=== PATIENT | male | born 1955 | race Caucasian/White ===

== ENCOUNTER 2022-09-20 12:34 | Outpatient (CLI) | payer MEDICARE, SELFPAY ==
[2022-09-20 18:32] LABS: Hemoglobin 13.3 g/dL (14.0-18.0); Mean Corpuscular HGB Conc 31.7 g/dl (32-36); Mean Corpuscular Hemoglobin 27.5 pg (26-34); Mean Platelet Volume 11.7 fl (7.4-10.4); Platelet Count Result 277 k/mm3 (150-375); Red Blood Count 4.83 M/mm3 (4.6-6.20); Red Cell Distribution Width 14.9 % (11.5-14.5); White Blood Count 5.4 K/mm3 (4.5-10.0)
[2022-09-20 18:39] LABS: Alanine Aminotransferase 14 U/L (6-50); Albumin Level 4.4 g/dL (3.5-5.1); Alkaline Phosphatase 88 U/L (38-126); Anion Gap 9 mmol/L (8-16); Aspartate Amino Transferase 27 U/L (17-59); Bilirubin,Total 0.8 mg/dL (0.2-1.3); Blood Urea Nitrogen 18 mg/dL (9-20); Calcium 9.3 mg/dL (8.4-10.2); Carbon Dioxide 27 mmol/L (22-30); Chloride 103 mmol/L (98-107); Cholesterol 161 mg/dL (0-200); Estimated Glomerular Filt Rate > 60; Glucose 95 mg/dL (65-110); HDL Direct 27 mg/dL; Potassium 4.2 mmol/L (3.4-5.0); Sodium 139 mmol/L (137-145); Triglycerides 178 mg/dL (<150)
[2022-09-20 18:49] LABS: LDL Cholesterol Direct 99 mg/dL
== END 2022-09-20 12:35 | disposition home or self-care (01) ==
LOC: ANHGOSHLAB 12:37
PROVIDERS: PCP Family Medicine Adolescent Medicine; Visit Provider Family Medicine Adolescent Medicine
DX: R06.00 Dyspnea, unspecified (principal); R00.1 Bradycardia, unspecified; I10 Essential (primary) hypertension; I25.10 Atherosclerotic heart disease of native coronary artery without angina pectoris
CPT/HCPCS: 36415; 80053; 80061; 84443; 85027

== ENCOUNTER 2023-09-18 12:58 | Inpatient (IN) | payer MEDICARE, SELFPAY ==
[2023-09-18] VITALS (14 sets, daily range): BP systolic 109–132; BP diastolic 50–76; PULSE 93–103; RESP 12–23; TEMP 36.3–36.4; O2SAT 95–99; BMI 14.7
--- NOTE | ~2023-09-18 | CT_ITS ---
EXAMINATION: CT brain wo con DATE: 09/18/2023 14:39 INDICATION: Weakness. Cachexia. TECHNIQUE: Computed tomography (CT) of the head was performed without intravenous contrast. The mA wa s adjusted according to patient size. Iterative reconstruction technique was employed. The dose-lengt h product was 681.00 mGy-cm. COMPARISON: None FINDINGS: There is an old infarct in right caudate nucleus. There are scattered areas of low attenuat ion in the cerebral white matter. There is no intracranial hemorrhage, acute infarction, or abnormal intracranial mass lesion. The ventricles are normal in size. There is mild mucosal thickening in the paranasal sinuses. The orbits are normal. There is a trace left mastoid effusion. IMPRESSION: 1. 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 2. Extensive nonspecific cerebral white matter disease, which likely represents chronic small vessel ischemic disease. Reviewed, dictated and finalized at location A.
--- NOTE | ~2023-09-18 | CT_ITS ---
EXAMINATION: CT chest abdomen pelvis w con DATE: 09/18/2023 14:39 INDICATION: Cachexia. Failure to thrive. TECHNIQUE: Computed tomography (CT) of the chest, abdomen, and pelvis was performed with 100 mL Omnip aque 350 intravenous contrast. Automated exposure control and iterative reconstruction technique were employed. The dose-length product was 351.22 mGy-cm. COMPARISON: None FINDINGS: CHEST CT: There is moderate emphysema. There are small pleural effusions. There is mild atelectasis bilaterally with a dependent predominance. There is mediastinal and right supraclavicular lymphadenopathy. For xu daley, a right supraclavicular elliott mass measures 5.0 x 3.0 cm. Cardiomegaly is noted. There are co ronary artery calcifications. There are changes of coronary artery bypass grafting. No pericardial ef fusion. There is mild chronic anterior wedging of multiple thoracic vertebral bodies. There is sclero sis in T9 vertebral body that is indeterminate for metastatic disease. ABDOMEN/PELVIS CT: There are greater than 10 ring-enhancing masses in the liver measuring up to 16 mm. The spleen, gallb ladder, pancreas, adrenal glands, and left kidney are normal. There is moderate atrophy of right kidn ey. Stool distends the rectum. The appendix is not visualized. There are no pathologically enlarged l ymph nodes. There is no free intraperitoneal fluid. There is calcified atherosclerosis of the aorta a nd many of the other arteries. There is total occlusion of the bilateral superficial femoral arteries . There is severe stenosis of right renal artery. There is a total left hip arthroplasty. There is a burst fracture of L1 with 4/5 loss of height and retropulsion of bone 5 mm into central spinal canal. There is a chronic burst fracture of L3. IMPRESSION: 1. Liver masses and mediastinal and right supraclavicular lymphadenopathy, consistent with metastatic disease. Sclerosis in T9 that is indeterminate for metastatic disease. 2. Small pleural effusions. 3. Age-indeterminate L1 burst fracture suspicious for pathologic fracture. 4. Moderate emphysema. 5. Stool distends the rectum. 6. Arterial occlusive disease. Reviewed, dictated and finalized at location A. IMPRESSION: 1. Liver masses and mediastinal and right supraclavicular lymphadenopathy, cons istent with metastatic disease. Sclerosis in T9 that is indeterminate for metas tatic disease. 2. Small pleural effusions. 3. Age-indeterminate L1 burst fracture suspicious for pathologic fracture. 4. Moderate emphysema. 5. Stool distends the rectum. 6. Arterial occlusive disease.
--- NOTE | ~2023-09-18 | CT_ITS ---
EXAMINATION: CT cervical spine wo con DATE: 09/18/2023 14:39 INDICATION: Fall. Weakness. TECHNIQUE: Computed tomography (CT) of the cervical spine was performed without intravenous contrast. Automated exposure control and iterative reconstruction technique were employed. The dose-length pro duct was 184.29 mGy-cm. COMPARISON: None FINDINGS: There is 2 mm anterolisthesis of C3 and C4. There is 4 degrees levocurvature of cervical sp ine. Vertebral body heights are normal. There is mildly decreased disc height at C2-C3 and severely d ecreased disc height from C3-C4 through C7-T1. The following disc levels are specifically discussed: C2-C3: There is mild left uncovertebral joint osteoarthritis. There is severe right and moderate left facet joint osteoarthritis. There is mild left neural foraminal stenosis. There is no central canal stenosis. C3-C4: There is severe bilateral uncovertebral joint osteoarthritis. There is mild right and severe l eft facet joint osteoarthritis. There is mild right and moderate left neural foraminal stenosis. Ther e is mild central canal stenosis. C4-C5: There is severe right and mild left uncovertebral joint osteoarthritis. There is moderate righ t and severe left facet joint osteoarthritis. There is mild right neural foraminal stenosis. There is mild central canal stenosis. C5-C6: There is severe bilateral uncovertebral joint osteoarthritis. There is severe bilateral facet joint osteoarthritis. There is moderate bilateral neural foraminal stenosis. There is mild central ca nal stenosis. C6-C7: There is severe bilateral uncovertebral joint osteoarthritis. There is moderate bilateral face t joint osteoarthritis. There is moderate bilateral neural foraminal stenosis. There is mild central canal stenosis. C7-T1: There is severe bilateral uncovertebral joint osteoarthritis. There is moderate bilateral face t joint osteoarthritis. There is mild bilateral neural foraminal stenosis. There is mild central uriel l stenosis. IMPRESSION: 1. No fracture. 2. Severe cervical spondylosis. Reviewed, dictated and finalized at location A.
--- NOTE | ~2023-09-18 | XR_ITS ---
EXAMINATION: XR barium swallow modified DATE: 09/19/2023 13:48 INDICATION: Dysphagia. TECHNIQUE: The patient was given barium-containing material of multiple consistencies to swallow by t he speech pathologist while I performed fluoroscopy. Fluoroscopy exposure time was 3.3 minutes. The n umber of fluoroscopy images saved to the PACS was 1. Dose-area product was 2.03 Gy-cm^2. FINDINGS: There is delayed oral transit. There is reduced laryngeal elevation. There is laryngeal penetration w ith uncontrolled thin liquids via straw. IMPRESSION: 1. Laryngeal penetration with uncontrolled thin liquids via straw. 2. Please refer to the speech therapy report for recommendations. Reviewed, dictated and finalized at location A.
--- NOTE | ~2023-09-18 | US_ITS ---
EXAMINATION: US biopsy lymph node DATE: 09/19/2023 11:10 INDICATION: Right supraclavicular lymphadenopathy. TECHNIQUE: The procedure including the risks, benefits, and alternatives was discussed with the patie nt. Risks discussed included bleeding and infection. The patient understood the risks and agreed to p roceed. The skin overlying the right neck was prepped and draped in usual sterile fashion. Anestheti c was administered with 1% lidocaine subcutaneously. An 18 gauge core biopsy needle was then used to obtain 3 core biopsy specimens under continuous sonographic guidance. The entry site was cleaned and dressed. There were no immediate complications. FINDINGS: Ultrasound images demonstrate the needle in a 5.1 x 3.5 x 2.3 cm right supraclavicular lymp h node. IMPRESSION: 1. Ultrasound-guided core needle biopsy of right supraclavicular lymphadenopathy. Reviewed, dictated and finalized at location A. IMPRESSION: 1. Ultrasound-guided core needle biopsy of right supraclavicular lymphadenopath yHugo
--- NOTE | 2023-09-18 13:24 | ECG_ITS ---
[facility] [address] Test Date: 2023-09-18 Pat Name: Ivan Sharif Department: Room: Gender: M Pediatric Dermatologist: Tariq : 1955 Requested By: Hellen Nash Order Number: [id number] Ze MD: Merry Barrow M.D. Measurements Intervals [place] Rate: 101 P: -74 AL: 180 QRS: -61 QRSD: 162 T: 92 QT: 391 QTc: 509 Interpretive Statements ECTOPIC ATRIAL TACHYCARDIA WITH OCCASIONAL VENTRICULAR PREMATURE COMPLEXES POSSIBLE LEFT ATRIAL ENLARGEMENT [-0.1mV P WAVE IN V1/V2] MARKED LEFT AXIS DEVIATION [QRS AXIS < -30] LEFT BUNDLE BRANCH BLOCK [120+ ms QRS DURATION, 80+ ms Q/S IN V1/V2, 85+ ms R IN I/aVL/V5/V6] No previous ECG available for comparison Electronically Signed On 09-18-2023 13:52:04 CDT by Merry Barrow M.D.
--- NOTE | 2023-09-18 13:28 | ED.WEAKNESS ---
HPI - Weakness General Chief complaint: Weakness <Hellen Conde PA-C - Last Filed: 09/18/23 17:36> Stated complaint: FTT <Hellen Conde PA-C - Last Filed: 09/18/23 17:36> Time Seen by Provider: 09/18/23 13:05 <Hellen Conde PA-C - Last Filed: 09/18/23 17:36> History of Present Illness HPI Narrative: 68-year-old male with a history of MDD, emphysema, hypertension, CAD, s/p CABG Presents to the ED via EMS from home for generalized weakness and failure to thrive. Patient states he has been unable to get off of the floor for multiple days and prior to that was unable to get off of the couch for 3 weeks. he is covered in feces and urine upon arrival. States he has not been able to eat or drink anything for or multiple weeks and reports significant weight loss. Unable to quantify. Per chart review, he weighed 59 kg in September of 2022 and today weighs 46 kg. He Is reporting pain to his buttock. He denies cough or congestion, chest pain or shortness of breath, fever, abdominal pain, nausea vomiting, diarrhea , dysuria or hematuria. States he has not been taking any medications for a while. Patient also notes prior history of alcohol abuse. States he stop drinking 7 years ago. <Hellen Conde PA-C - Last Filed: 09/18/23 17:36> Related Data Home medications: Home Medications Medication Instructions Recorded Confirmed ascorbic acid (vitamin C) 500 mg 500 mg PO DAILY 09/18/23 09/18/23 tablet <Hellen Conde PA-C - Last Filed: 09/18/23 17:36> Allergies/Adverse reactions: Allergies Allergy/AdvReac Type Severity Reaction Status Date / Time No Known Allergies Allergy Verified 09/18/23 18:49 <SATHYA Jaime Last Filed: 09/18/23 17:36> Review of Systems Review of Systems: CONSTITUTIONAL: Denies fever, chills, or sweats. EYES: Denies visual changes, redness, or discharge. ENT: Denies rhinorrhea, congestion, sore throat, or otalgia. CARDIOVASCULAR: Denies chest pain, palpitations, or edema. RESPIRATORY: Denies cough or dyspnea. GASTROINTESTINAL: Denies abdominal pain, nausea, vomiting, or diarrhea. GENITOURINARY: Denies dysuria or hematuria. SKIN: see HPI MUSCULOSKELETAL: Denies back pain, joint pain, or myalgia. NEUROLOGIC: Denies headache, numbness, or weakness. PSYCHIATRIC: Denies anxiety or depression. <Hellen Conde PA-C - Last Filed: 09/18/23 17:36> [facility] Surgical History Surgical History: Surgical History History of coronary artery bypass graft x 3 (2019) History of hip surgery (2017) ORIF fx left History of total left hip arthroplasty (2019) <Hellen Conde PA-C - Last Filed: 09/18/23 17:36> Social History Social History: Social History Smoking packs per day: 2 Smoking cigarettes per day: 40.0 Years smoked: 40 Smoking pack-years: 80.00 Smoking status: Former smoker Tobacco type: cigarettes Alcohol intake: former Substance use: former Substance use type: marijuana Do You Feel Safe in your Home?: Yes Lack of Transportation: No Lack of Food: Never True Current Housing: I Have Housing Concerned About Future Housing: No Difficulty Paying Gas/Electric Bills: No Difficulty Paying for Meds: No Currently Unemployed: No Education: Master's Degree or Higher Difficulty w/ Childcare or Family Care: No Spiritual care concerns: No <Hellen Conde PA-C - Last Filed: 09/18/23 17:36> Exam Narrative: GENERAL: cachectic, ill appearing, NAD HEAD: Normocephalic, atraumatic. EYES: PERRLA and EOMI. ENT: Nares clear, no rhinorrhea or epistaxis. Mucous membranes Very dry. Voice is hoarse NECK: Supple. CHEST: Clear to auscultation. No respiratory distress. HEART: Regular rate and rhythm. No murmur heard. Normal peripheral pulses. ABDOMEN: Soft, nontender, nondistended, normal act
[2023-09-18] MEDS: SODIUM CHLORIDE 0.9% IV 1,000 ML 999 ML IV CONT ×2 (13:51→13:52)
[2023-09-18] MEDS: LIDOCAINE HCL 2% GEL UROJET 10 ML PKG (14:02)
[2023-09-18 14:03] LABS: Hematocrit 30.8 % (42.0-52.0); Hemoglobin 9.6 g/dL (14.0-18.0); Mean Corpuscular HGB Conc 31.2 g/dl (32-36); Mean Corpuscular Volume 86.5 fl (80-100); Mean Platelet Volume 10.5 fl (7.4-10.4); Platelet Count Result 178 k/mm3 (150-375); Red Blood Count 3.56 M/mm3 (4.6-6.20); Red Cell Distribution Width 19.1 % (11.5-14.5); White Blood Count 4.8 K/mm3 (4.5-10.0)
[2023-09-18 14:14] LABS: Creatine Kinase 26 U/L (55-170); Lipase 43 U/L (23-300)
[2023-09-18 14:16] LABS: Alanine Aminotransferase 10 U/L (6-50); Albumin Level 3.8 g/dL (3.5-5.1); Alkaline Phosphatase 98 U/L (38-126); Anion Gap 10 mmol/L (4-12); Aspartate Amino Transferase 98 U/L (17-59); Bilirubin,Total 0.8 mg/dL (0.2-1.3); Blood Urea Nitrogen 29 mg/dL (9-20); Calcium 10.7 mg/dL (8.4-10.2); Carbon Dioxide 26 mmol/L (22-30); Chloride 100 mmol/L (98-107); Estimated CRCL calculation 49 ml/min; Estimated Glomerular Filt Rate > 60; Glucose 88 mg/dL (65-110); INR 1.2; Potassium 4.1 mmol/L (3.4-5.0); Prothrombin Time 15.7 Seconds (11.1-14.7); Sodium 136 mmol/L (137-145)
[2023-09-18 14:19] LABS: Lactic Acid Reflex 2.5 mmol/L (0.7-2.0)
[2023-09-18 14:21] LABS: Appearance Urine Clear (Clear); Bacteria Urine None Seen /hpf; Bilirubin Urine Negative (Negative); Blood Urine Negative (Negative); Color Urine Dark Yellow (Yellow); Glucose Urine UA Negative (Negative); Hyaline Casts Urine Present /lpf; Ketones Urine Trace mg/dL (Negative); Leukocyte Esterase Ur Negative LEU/UL (Negative); Mucus Urine Present /lpf; Nitrate Urine Negative (Negative); Non Pathogenic Casts >20; Protein Urine Trace mg/dL (Negative); Squamous Epithelial Cell Urine None Seen /hpf (Few); WBC Urine 0-5 /hpf (0-3)
[2023-09-18 14:26] LABS: Troponin I 0.015 ng/mL (0.000-0.034)
[2023-09-18 14:28] LABS: Specific Grav Ur 1.036 (1.001-1.035)
[2023-09-18 14:34] LABS: Ethanol < 10 mg/dL (<10)
[2023-09-18 14:44] LABS: Amphetamine Screen Urine Negative (Negative); Barbiturate Screen Urine Negative (Negative); Benzodiazepines Screen Urine Negative (Negative); Cannabinoid Screen Urine Negative (Negative); Cocaine Screen Urine Negative (Negative); Methadone Screen Urine Negative (Negative); Opiate Screen Urine Negative (Negative); Phencyclidine Screen Urine Negative (Negative)
[2023-09-18 14:53] LABS: Add Urine Microscopic? YES
[2023-09-18 15:06] LABS: Band Neutrophils Percent 6 % (0-6); Eosinophils Absolute Manual 0.04 K/mm3 (0.02-0.50); Eosinophils Percent Manual 1 % (0-4); Lymphocytes Absolute Manual 0.14 K/mm3 (1.1-4.5); Monocytes Absolute Manual 0.04 K/mm3 (0.1-0.90); Monocytes Percent Manual 1 % (3-9); Neutrophils Absolute Manual 4.56 K/mm3 (1.3-6.7); Neutrophils Percent Manual 89 % (46-73); Platelet Estimate Adequate (Adequate); Total Cells Counted 100
[2023-09-18 15:07] LABS: Anisocytosis 1+; Ovalocytes 2+; Poikilocytosis 2+; Tear Drop Cells 1+
[2023-09-18 15:11] LABS: Helmet Cells 1+; Schistocytes 1+
[2023-09-18 16:04] LABS: Free T4 Free Thyroxine Reflex 1.39 ng/dL (0.78-2.19)
[2023-09-18] MEDS: MORPHINE SULFATE (*CRX) 4 MG/ML INJ IV PUSH (16:41)
[2023-09-18 17:00] LABS: Reflex Lactic Acid Yes or No Add Lactic
[2023-09-18 17:37] LABS: Lactic Acid 2.1 mmol/L (0.7-2.0)
[2023-09-18 21:57] LABS: Total Triiodothyronine (T3) 0.64 NG/ML (0.97-1.69)
--- NOTE | 2023-09-18 22:43 | PM.IMHP ---
H&P: HPI History of Present Illness Date/Time: 09/18/23 22:43 Chief Complaint: Patient brought to the ER by EMS for generalized weakness and failure to thrive Narrative: 68 years old pleasantly confused gentleman brought in to the ER for evaluation as he was unable to get off the floor for multiple days and was unable to get off the couch for 3 weeks. He reports significant weight loss as he has been unable to eat or drink for multiple weeks. He weighs 59 kg in 09/2022 and weighted 46.5 kg today. He is also complaining of pain in his buttock and left hip which showed ulcers. He was found to be dehydrated and started on IV fluids. He says he has not had any healthcare for approximately 1 year and not taking any medications. Workup was done in the ER which showed Liver masses and mediastinal and right supraclavicular lymphadenopathy consistent with probable metastatic disease. We do not have any Oncology presence in our hospital for next 3 days hence [facility] consulted for patient transfer. Hospitalist as [facility], Dr. Medel, said patient can stay in our hospital and get an IR guided lymph node biopsy to identify source and patient can be seen by our oncologist at that time. ER physician spoke with interventional Radiology who agreed to perform ultrasound guided lymph node biopsy in the morning. He is being admitted for IV hydration, ultrasound-guided lymph node biopsy, oncology evaluation in the next few days, medical management and and further workup. Review of Systems Review of Systems: Unable to be obtained. Patient is pleasantly confused ROS unobtainable: Yes unobtainable due to medical condition and unobtainable due to mental status PMFSH Surgical History Surgical History History of coronary artery bypass graft x 3 (2019) History of hip surgery (2017) ORIF fx left History of total left hip arthroplasty (2019) Social History Social History Smoking packs per day: 2 Smoking cigarettes per day: 40.0 Years smoked: 40 Smoking pack-years: 80.00 Smoking status: Former smoker Tobacco type: cigarettes Alcohol intake: former Substance use: former Substance use type: marijuana Do You Feel Safe in your Home?: Yes Lack of Transportation: No Lack of Food: Never True Current Housing: I Have Housing Concerned About Future Housing: No Difficulty Paying Gas/Electric Bills: No Difficulty Paying for Meds: No Currently Unemployed: No Education: Master's Degree or Higher Difficulty w/ Childcare or Family Care: No Spiritual care concerns: No Meds Home Medications and Allergies Home Medications Medication Instructions Recorded Confirmed Type ascorbic acid (vitamin C) 500 mg 500 mg PO DAILY 09/18/23 09/18/23 History tablet Allergies Allergy/AdvReac Type Severity Reaction Status Date / Time No Known Allergies Allergy Verified 09/18/23 18:49 Vital Signs Vital Signs - 24 hr 09/18/23 13:02 09/18/23 13:25 09/18/23 13:59 Temperature Pulse Rate 101 H 103 H 100 Respiratory Rate 18 19 Blood Pressure 126/67 124/62 Pulse Oximetry 99 99 Oxygen Delivery Room Air 09/18/23 14:01 09/18/23 14:16 09/18/23 16:11 Temperature Pulse Rate 100 100 97 Respiratory Rate 20 23 H 17 Blood Pressure 124/62 125/76 126/69 Pulse Oximetry 98 98 98 Oxygen Delivery 09/18/23 16:41 09/18/23 16:17 09/18/23 16:31 Temperature 36.4 C Pulse Rate 99 98 Respiratory Rate 18 22 H Blood Pressure 118/70 122/69 Pulse Oximetry 99 98 Oxygen Delivery 09/18/23 16:46 09/18/23 17:01 09/18/23 18:28 Temperature Pulse Rate 100 95 93 Respiratory Rate 12 15 18 Blood Pressure 128/62 109/62 115/65 Pulse Oximetry 98 98 98 Oxygen Delivery 09/18/23 18:31 09/18/23 20:01 Temperature 36.3 C L Pulse Rate 103 H 96 Respiratory Rate 17 18 Blood Pressure 132/63 117/5
[2023-09-19] MEDS: SODIUM CHLORIDE 0.9% IV 1,000 ML 75 ML IV CONT ×2 (04:45→20:53)
[2023-09-19 04:49] LABS: Hematocrit 28.4 % (42.0-52.0); Hemoglobin 8.5 g/dL (14.0-18.0); Mean Corpuscular HGB Conc 29.9 g/dl (32-36); Mean Corpuscular Hemoglobin 26.7 pg (26-34); Mean Corpuscular Volume 89.3 fl (80-100); Mean Platelet Volume 10.7 fl (7.4-10.4); Platelet Count Result 178 k/mm3 (150-375); Red Blood Count 3.18 M/mm3 (4.6-6.20); Red Cell Distribution Width 20.2 % (11.5-14.5); White Blood Count 5.4 K/mm3 (4.5-10.0)
[2023-09-19 05:01] LABS: Anion Gap 11 mmol/L (4-12); Blood Urea Nitrogen 26 mg/dL (9-20); Calcium 10.2 mg/dL (8.4-10.2); Carbon Dioxide 21 mmol/L (22-30); Chloride 104 mmol/L (98-107); Estimated CRCL calculation 56 ml/min; Estimated Glomerular Filt Rate > 60; Glucose 77 mg/dL (65-110); Magnesium 1.8 mg/dL (1.6-2.3); Phosphorus 3.7 mg/dL (2.5-4.5); Potassium 4.1 mmol/L (3.4-5.0); Sodium 136 mmol/L (137-145)
[2023-09-19 05:07] LABS: Lactic Acid Reflex 2.2 mmol/L (0.7-2.0)
[2023-09-19 05:19] LABS: Band Neutrophils Percent 10 % (0-6); Lymphocytes Absolute Manual 0.37 K/mm3 (1.1-4.5); Lymphocytes Percent Manual 7 % (18-44); Monocytes Absolute Manual 0.37 K/mm3 (0.1-0.90); Monocytes Percent Manual 7 % (3-9); Neutrophils Absolute Manual 4.53 K/mm3 (1.3-6.7); Neutrophils Percent Manual 74 % (46-73); Total Cells Counted 100
[2023-09-19 05:20] LABS: Anisocytosis 1+; Basophils Percent Manual 2 % (0-1); Burr Cells 1+; Ovalocytes 1+; Platelet Estimate Adequate (Adequate); Poikilocytosis 1+; Schistocytes None Seen
--- NOTE | 2023-09-19 07:36 | PM.IMPN ---
Progress Note: A&P Assessment and Plan (1) Decubitus skin ulcer: Code(s): L89.90 - Pressure ulcer of unspecified site, unspecified stage Status: Acute (2) Severe protein-calorie malnutrition: Code(s): E43 - Unspecified severe protein-calorie malnutrition Status: Acute (3) Metastatic disease: Qualifiers: Area of secondary neoplastic involvement: unspecified site Qualified Code(s): C79.9 - Secondary malignant neoplasm of unspecified site Code(s): C79.9 - Secondary malignant neoplasm of unspecified site Status: Acute (4) Normocytic hypochromic anemia: Code(s): D50.9 - Iron deficiency anemia, unspecified Status: Acute (5) Adult failure to thrive: Code(s): R62.7 - Adult failure to thrive Status: Acute (6) Emphysema lung: Code(s): J43.9 - Emphysema, unspecified Status: Acute (7) Aortic atherosclerosis: Code(s): I70.0 - Atherosclerosis of aorta Status: Acute (8) Major depressive disorder, recurrent, mild: Code(s): F33.0 - Major depressive disorder, recurrent, mild Status: Acute (9) Benign prostatic hyperplasia with lower urinary tract symptoms: Code(s): N40.1 - Benign prostatic hyperplasia with lower urinary tract symptoms Status: Acute (10) Presence of aortocoronary bypass graft: Onset Date: 2018 Code(s): Z95.1 - Presence of aortocoronary bypass graft Status: Acute (11) Atherosclerotic heart disease of [place] coronary artery without angina pectoris: Code(s): I25.10 - Atherosclerotic heart disease of [place] coronary artery without angina pectoris Status: Acute (12) Age related osteoporosis: Code(s): M81.0 - Age-related osteoporosis without current pathological fracture Status: Acute (13) Essential (primary) hypertension: Code(s): I10 - Essential (primary) hypertension Status: Acute Plan Admit patient to medical unit under full inpatient status Patient admitted with thrive, dehydration, electrolyte abnormalities, dehydration and multiple liver masses with lymphadenopathy Patient given 2 L of IV hydration in the ER Started patient on gentle IV hydration with normal saline at 75 cc/hour Strict input and output monitoring Patient had mild lactic acidosis on admission which is slowly improving- monitor Monitor renal functions closely Wound care consult placed for treatment of his ulcers in the buttocks and left hip IV antibiotics for decubitus ulcers as warranted Keep patient NPO after midnight except meds- bedside swallow eval and speech eval after before ordering diet Patient has lab findings consistent with mild hypothyroidism hence started patient on levothyroxine 50 mcg oral daily Patient meets criteria for severe protein calorie malnutrition Advised patient to have a frequent, high-calorie, intake of healthy food in diet on a daily basis to gain a few pounds Nutritional consult given to help with the above goal Patient's long-term prognosis remains guarded Care coordination consult given to reach out to family for code status and realistic management expectations Repeat labs in a.m. Electrolyte replacement as per protocol. Patient will be monitored very closely on the floor. Time Spent With Patient Time with patient: 25 - 35 minutes Subjective Date/time seen: 09/19/23 07:36 Interval history: 68 years old pleasantly confused gentleman brought in to the ER for generalized weakness and failure to thrive he was unable to get off the floor for multiple days and was unable to get off the couch for 3 weeks. He reports significant weight loss as he has been unable to eat or drink for multiple weeks. He weighs 59 kg in 09/2022 and weighted 46.5 kg today. He is also complaining of pain in his buttock and left hip which showed ulcers. He was found to be dehydrated and started on IV fluids. He says he has not had any healthcare for approximatel
[2023-09-19 07:46] LABS: Reflex Lactic Acid Yes or No Add Lactic
[2023-09-19 09:08] LABS: Lactic Acid 2.4 mmol/L (0.7-2.0)
[2023-09-19 11:05] VITALS: BMI 14.7
[2023-09-19 14:00] VITALS: BP 128/62; PULSE 94; RESP 17; TEMP 36.4; O2SAT 98
--- NOTE | 2023-09-19 14:56 | PDONCCN ---
HPI - Date of Consult Date/Time: 09/19/23 14:56 Requesting Physician: Osman Stout MD Primary Care Provider: Wai Olson MD - Consult Narrative Reason for consult: Metastatic cancer Narrative: Ivan Sharif is a 68 year old male with history of coronary artery disease status post coronary artery bypass grafting in 2019 with brought into the ER when he was found unable to get off the floor for multiple days and was not able to get out of the couch for 3 weeks. He lost significant amount of weight and has not been eating for last 3 weeks duration. He denies any previous history of malignancy. Patient is a poor historian. I tried contacting patient's sister but was not able to reach her. CT scan chest abdomen and pelvis done on September 17 showed liver masses with mediastinal and right supraclavicular lymphadenopathy along with sclerosis of T9 indeterminate for metastatic disease. There was small pleural effusion and L1 burst fracture. Moderate emphysema. He denies any diarrhea and constipation. No melena hematochezia. According the patient used to smoke and has quit smoking. Patient underwent right supraclavicular lymph node biopsy. Review of Systems - Review of Systems All systems reviewed & are unremarkable except as noted in HPI and [facility] Surgical History: Surgical History (Last Reviewed 09/19/23 @ 03:43 by Petros Saunders MD) History of coronary artery bypass graft x 3 Onset Date: 2018 History of hip surgery Onset Date: 2016 ORIF fx left History of total left hip arthroplasty Onset Date: 2019 - Social History Social History: Social History (Last Reviewed 09/19/23 @ 03:43 by Petros Saunders MD) Alcohol Use: Alcohol intake: former Substance Use: Substance use: former Substance use type: marijuana Others: Spiritual care concerns: No Smoking Status: Smoking status: Former smoker Tobacco type: cigarettes Smoking Pack-years: Smoking packs per day: 2 Smoking cigarettes per day: 40.0 Years smoked: 40 Smoking pack-years: 80.00 Social Determinants of Health: Do You Feel Safe in your Home?: Yes Has the Lack of Transportation Kept You From Medical Appointments or From Getting Medications?: No Within the Past 12 Months, Were You Worried Whether Your Food Would Run Out Before You Got Money to Buy More?: Never True What is Your Housing Situation Today?: I Have Housing Are You Worried That in the Next 2 Months, You May Not Have Your Own Housing to Live In?: No Do You Have Trouble Paying Your Heating Or Electricity Bill?: No Do You Have Trouble Paying For Medicines?: No Are You Currently Unemployed and Looking for Work?: No Highest Level of Education Completed: Master's Degree or Higher Do You Have Trouble With Childcare or the Care of a Family Member?: No Exam - Vital Signs Vital Signs - 24 hr 09/18/23 16:11 09/18/23 16:41 09/18/23 16:17 Temperature 36.4 C Pulse Rate 97 99 Respiratory Rate 17 18 Blood Pressure 126/69 118/70 Pulse Oximetry 98 99 Oxygen Delivery 09/18/23 16:31 09/18/23 16:46 09/18/23 17:01 Temperature Pulse Rate 98 100 95 Respiratory Rate 22 H 12 15 Blood Pressure 122/69 128/62 109/62 Pulse Oximetry 98 98 98 Oxygen Delivery 09/18/23 18:28 09/18/23 18:31 09/18/23 20:01 Temperature 36.3 C L Pulse Rate 93 103 H 96 Respiratory Rate 18 17 18 Blood Pressure 115/65 132/63 117/50 L Pulse Oximetry 98 95 97 Oxygen Delivery 09/19/23 08:14 09/19/23 14:00 Temperature 36.4 C Pulse Rate 94 Respiratory Rate 17 Blood Pressure 128/62 Pulse Oximetry 98 Oxygen Delivery Room Air - Exam HEENT: EOMI, PERRLA, mucous membranes moist and pink Neck: supple Lungs: clear to auscultation, normal air movement Heart: no murmurs, gallops, or rubs, regular rhythm, regular rate Abdomen: abdomen soft, non-distended, normal bowel sounds Extremities: n
[2023-09-19] MEDS: ENOXAPARIN 40 MG/0.4 ML SYRINGE SUB-Q (15:02)
--- NOTE | 2023-09-19 15:11 | PCSTNOTE ---
Please refer to the Bedside Swallow Evaluation in the EMR. Please note, silent aspiration cannot be ruled out at bedside.
[2023-09-19 16:35] LABS: Iron 56 ug/dL (49-181)
[2023-09-19 16:44] LABS: Percent Iron Saturation 32 % (20-50)
[2023-09-19 17:59] LABS: Ferritin > 2000.00 ng/mL (11.1-264)
[2023-09-19 19:57] VITALS: BP 125/58; PULSE 108; RESP 18; TEMP 36.4; O2SAT 84
[2023-09-19] MEDS: ACETAMINOPHEN 325 MG TABLET 650 MG PO (20:50)
[2023-09-20 02:00] VITALS: O2SAT 92
[2023-09-20 04:48] VITALS: BP 111/60; PULSE 98; RESP 20; TEMP 36.5; O2SAT 96
[2023-09-20] MEDS: ACETAMINOPHEN 325 MG TABLET 650 MG PO (05:14)
[2023-09-20 05:35] LABS: Hematocrit 28.1 % (42.0-52.0); Hemoglobin 8.6 g/dL (14.0-18.0); Mean Corpuscular HGB Conc 30.6 g/dl (32-36); Mean Corpuscular Volume 88.4 fl (80-100); Mean Platelet Volume 10.8 fl (7.4-10.4); Platelet Count Result 169 k/mm3 (150-375); Red Blood Count 3.18 M/mm3 (4.6-6.20); Red Cell Distribution Width 20.6 % (11.5-14.5); White Blood Count 6.5 K/mm3 (4.5-10.0)
[2023-09-20 05:44] LABS: Anion Gap 9 mmol/L (4-12); Blood Urea Nitrogen 31 mg/dL (9-20); Calcium 10.4 mg/dL (8.4-10.2); Carbon Dioxide 23 mmol/L (22-30); Chloride 107 mmol/L (98-107); Estimated CRCL calculation 45 ml/min; Estimated Glomerular Filt Rate > 60; Glucose 88 mg/dL (65-110); Potassium 4.9 mmol/L (3.4-5.0); Sodium 139 mmol/L (137-145)
[2023-09-20 05:46] LABS: Lactic Acid Reflex 2.2 mmol/L (0.7-2.0)
[2023-09-20 05:57] LABS: Anisocytosis 1+; Band Neutrophils Percent 12 % (0-6); Burr Cells 1+; Eosinophils Absolute Manual 0.13 K/mm3 (0.02-0.50); Eosinophils Percent Manual 2 % (0-4); Lymphocytes Absolute Manual 0.19 K/mm3 (1.1-4.5); Monocytes Absolute Manual 0.26 K/mm3 (0.1-0.90); Monocytes Percent Manual 4 % (3-9); Neutrophils Absolute Manual 5.91 K/mm3 (1.3-6.7); Neutrophils Percent Manual 79 % (46-73); Ovalocytes 1+; Platelet Estimate Adequate (Adequate); Schistocytes None Seen; Total Cells Counted 100
[2023-09-20] MEDS: LEVOTHYROXINE SODIUM 50 MCG TABLET PO (06:42)
--- NOTE | 2023-09-20 07:45 | PM.IMPN ---
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 (4) Normocytic hypochromic anemia: Code(s): D50.9 - Iron deficiency anemia, unspecified Status: Acute (5) Adult failure to thrive: Code(s): R62.7 - Adult failure to thrive Status: Acute (6) Emphysema lung: Code(s): J43.9 - Emphysema, unspecified Status: Acute (7) Aortic atherosclerosis: Code(s): I70.0 - Atherosclerosis of aorta Status: Acute (8) Major depressive disorder, recurrent, mild: Code(s): F33.0 - Major depressive disorder, recurrent, mild Status: Acute (9) Benign prostatic hyperplasia with lower urinary tract symptoms: Code(s): N40.1 - Benign prostatic hyperplasia with lower urinary tract symptoms Status: Acute (10) Presence of aortocoronary bypass graft: Onset Date: 2018 Code(s): Z95.1 - Presence of aortocoronary bypass graft Status: Acute (11) Atherosclerotic heart disease of [place] coronary artery without angina pectoris: Code(s): I25.10 - Atherosclerotic heart disease of [place] coronary artery without angina pectoris Status: Acute (12) Age related osteoporosis: Code(s): M81.0 - Age-related osteoporosis without current pathological fracture Status: Acute (13) Essential (primary) hypertension: Code(s): I10 - Essential (primary) hypertension Status: Acute Plan Admit patient to medical unit under full inpatient status Patient admitted with thrive, dehydration, electrolyte abnormalities, dehydration and multiple liver masses with lymphadenopathy Patient given 2 L of IV hydration in the ER Started patient on gentle IV hydration with normal saline at 75 cc/hour Strict input and output monitoring Patient had mild lactic acidosis on admission which is slowly improving- monitor Monitor renal functions closely Wound care consult placed for treatment of his ulcers in the buttocks and left hip Patient has lab findings consistent with mild hypothyroidism hence started patient on levothyroxine 50 mcg oral daily Patient meets criteria for severe protein calorie malnutrition Advised patient to have a frequent, high-calorie, intake of healthy food in diet on a daily basis to gain a few pounds Nutritional consult in place. Pt is agreeable to Gtube Pain control Turn and repositioned q2h Fall risk Patient's long-term prognosis remains guarded Repeat labs in a.m. Electrolyte replacement as per protocol. Patient will be monitored very closely on the floor. Time Spent With Patient Time with patient: 25 - 35 minutes Subjective Date/time seen: 09/20/23 07:45 Interval history: 68 years old pleasantly confused gentleman brought in to the ER for generalized weakness and failure to thrive he was unable to get off the floor for multiple days and was unable to get off the couch for 3 weeks. He reports significant weight loss as he has been unable to eat or drink for multiple weeks. He weighs 59 kg in 09/2022 and weighted 4
[2023-09-20 07:51] VITALS: O2SAT 96
[2023-09-20 08:30] LABS: Reflex Lactic Acid Yes or No Add Lactic
[2023-09-20 08:49] LABS: Lactic Acid 2.2 mmol/L (0.7-2.0)
[2023-09-20 09:13] VITALS: PULSE 97; RESP 20; O2SAT 99
[2023-09-20] MEDS: ENOXAPARIN 40 MG/0.4 ML SYRINGE SUB-Q (09:14)
[2023-09-20] MEDS: ASCORBIC ACID 500 MG TABLET PO (09:14)
[2023-09-20 14:00] VITALS: BP 125/56; PULSE 97; RESP 20; TEMP 36.5; O2SAT 99
[2023-09-20] MEDS: MORPHINE SULFATE (*CRX) 2 MG/ML INJ IV PUSH (15:00)
--- NOTE | 2023-09-20 15:29 | WPDGICN ---
Assessment and Plan Assessment and plan (1) Metastatic disease: Qualifiers: Area of secondary neoplastic involvement: unspecified site Qualified Code(s): C79.9 - Secondary malignant neoplasm of unspecified site Code(s): C79.9 - Secondary malignant neoplasm of unspecified site Status: Acute Assessment and Plan: s/p biopsy I talked to brother, they would like to wait on overall prognosis and pathology report then hopefully by Friday they can make a decision on next step if oral intake becomes a problem then we can proceed with PEG placement later next week, obviously he is wasting away and this is mostly from advanced malignancy however he had poor appetite and has not been eating much of anything (2) Severe protein-calorie malnutrition: Code(s): E43 - Unspecified severe protein-calorie malnutrition Status: Acute Assessment and Plan: from advanced malignancy and also poor oral intake (3) Normocytic hypochromic anemia: Code(s): D50.9 - Iron deficiency anemia, unspecified Status: Acute Assessment and Plan: probably from malignancy hem-onc on board (4) Adult failure to thrive: Code(s): R62.7 - Adult failure to thrive Status: Acute GI Consult Note Consult date/time: 09/20/23 15:29 Reason for consult: malnutrition, weight, metastatic disease HPI: Ivan Sharif is a 68 year old male with history of coronary artery disease status post coronary artery bypass grafting in 2019 here after progressive decline and unable to get off the couch for 3 weeks. His brother is here and also helping with history. Patient has been staying with older sister and he has not been eating or drinking much for last few weeks, they noticed significant weigh loss as he mostly did not have much of appetite and became very weak then finally brought to ER. Found to be dehydrated, also anemia with hgb 9, CT scan chest abdomen and pelvis reviewed showed liver masses with mediastinal and right supraclavicular lymphadenopathy along with sclerosis of T9 indeterminate for metastatic disease, radiology just completed lymph node biopsy. He has not been taking any medication lately. MBS no definitive aspiration but at risk, laryngeal penetration with uncontrolled thin liquids via straw, speech therapy recommending puree diet level 4 and if oral intake is not enough then consideration for peg. Review of Systems Constitutional: Constitutional: Reports weakness Comments: weight loss Eyes: Eyes: Denies blurry vision ENT: Reports Normal hearing present Cardiovascular: Cardiovascular: Denies chest pain Respiratory: Respiratory: Denies chest congestion Gastrointestinal: Gastrointestinal: Denies abdominal pain Genitourinary: Genitourinary: Denies flank pain Musculoskeletal: Musculoskeletal: Denies neck pain Integumentary/Breasts: Skin/Breast: Denies rash Neurologic: Denies Abnormal speech present Psychiatric: Psychiatric: Denies behavioral changes PMFSH Surgical History Surgical History History of coronary artery bypass graft x 3 (2019) History of hip surgery (2017) ORIF fx left History of total left hip arthroplasty (2019) Social History Social History Smoking packs per day: 2 Smoking cigarettes per day: 40.0 Years smoked: 40 Smoking pack-years: 80.00 Smoking status: Former smoker Tobacco type: cigarettes Alcohol intake: former Substance use: former Substance use type: marijuana Do You Feel Safe in your Home?: Yes Lack of Transportation: No Lack of Food: Never True Current Housing: I Have Housing Concerned About Future Housing: No Difficulty Paying Gas/Electric Bills: No Difficulty Paying for Meds: No Currently Unemployed: No Education: Master's Degree or Higher Difficulty w/ Childcare or Family Care: No Spiritual care conc
[2023-09-20 20:04] VITALS: BP 105/63; PULSE 83; RESP 18; TEMP 36.4; O2SAT 97
[2023-09-21] MEDS: KETOROLAC 30 MG/ML VIAL (*BKC) IV PUSH ×2 (00:55→20:13)
[2023-09-21 05:30] VITALS: BP 102/52; PULSE 94; RESP 18; TEMP 36.3; O2SAT 95
[2023-09-21 05:39] LABS: Hematocrit 27.6 % (42.0-52.0); Hemoglobin 8.2 g/dL (14.0-18.0); Mean Corpuscular HGB Conc 29.7 g/dl (32-36); Mean Corpuscular Hemoglobin 26.3 pg (26-34); Mean Corpuscular Volume 88.5 fl (80-100); Mean Platelet Volume 10.2 fl (7.4-10.4); Platelet Count Result 159 k/mm3 (150-375); Red Blood Count 3.12 M/mm3 (4.6-6.20); Red Cell Distribution Width 21.1 % (11.5-14.5); White Blood Count 5.5 K/mm3 (4.5-10.0)
[2023-09-21 05:58] LABS: Anion Gap 7 mmol/L (4-12); Blood Urea Nitrogen 29 mg/dL (9-20); Carbon Dioxide 23 mmol/L (22-30); Chloride 108 mmol/L (98-107); Estimated CRCL calculation 50 ml/min; Estimated Glomerular Filt Rate > 60; Glucose 81 mg/dL (65-110); Potassium 3.9 mmol/L (3.4-5.0); Sodium 138 mmol/L (137-145)
[2023-09-21] MEDS: LEVOTHYROXINE SODIUM 50 MCG TABLET PO (06:03)
[2023-09-21 06:41] LABS: Band Neutrophils Percent 8 % (0-6); Lymphocytes Absolute Manual 0.16 K/mm3 (1.1-4.5); Lymphocytes Percent Manual 3 % (18-44); Metamyelocytes Percent 1 %; Monocytes Absolute Manual 0.16 K/mm3 (0.1-0.90); Monocytes Percent Manual 3 % (3-9); Myelocytes Percent 1 %; Neutrophils Absolute Manual 5.06 K/mm3 (1.3-6.7); Neutrophils Percent Manual 84 % (46-73); Total Cells Counted 100
[2023-09-21 06:42] LABS: Anisocytosis 1+; Burr Cells 1+; Ovalocytes 1+; Platelet Estimate Adequate (Adequate); Poikilocytosis 1+; Schistocytes Rare
--- NOTE | 2023-09-21 08:08 | PM.IMPN ---
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 barium study ordered pt is agreeable for G-tube- GI consulted for placement-however when Dr Candelaria discussed with brother- family want to wait with that until diagnosis is made and plan of care is discussed (3) Metastatic disease: Qualifiers: Area of secondary neoplastic involvement: unspecified site Qualified Code(s): C79.9 - Secondary malignant neoplasm of unspecified site Code(s): C79.9 - Secondary malignant neoplasm of unspecified site Status: Acute Assessment and Plan: oncology consulted- following Patient underwent right supraclavicular lymph node biopsy 09/18 - pathology is pending. (4) Normocytic hypochromic anemia: Code(s): D50.9 - Iron deficiency anemia, unspecified Status: Acute Assessment and Plan: likely from malignancy- hem/onc on board (5) Adult failure to thrive: Code(s): R62.7 - Adult failure to thrive Status: Acute Assessment and Plan: -consulted GI for peg tube placement- family want to wait - pt is intake is very minimal at this point- but will continue to encourage and monitor to prevent aspiration - will add LR at 100 ml/h for now (6) Emphysema lung: Code(s): J43.9 - Emphysema, unspecified Status: Acute (7) Aortic atherosclerosis: Code(s): I70.0 - Atherosclerosis of aorta Status: Acute (8) Major depressive disorder, recurrent, mild: Code(s): F33.0 - Major depressive disorder, recurrent, mild Status: Acute (9) Benign prostatic hyperplasia with lower urinary tract symptoms: Code(s): N40.1 - Benign prostatic hyperplasia with lower urinary tract symptoms Status: Acute (10) Presence of aortocoronary bypass graft: Onset Date: 2018 Code(s): Z95.1 - Presence of aortocoronary bypass graft Status: Acute (11) Atherosclerotic heart disease of [place] coronary artery without angina pectoris: Code(s): I25.10 - Atherosclerotic heart disease of [place] coronary artery without angina pectoris Status: Acute (12) Age related osteoporosis: Code(s): M81.0 - Age-related osteoporosis without current pathological fracture Status: Acute (13) Essential (primary) hypertension: Code(s): I10 - Essential (primary) hypertension Status: Acute Plan Admit patient to medical unit under full inpatient status Patient admitted with thrive, dehydration, electrolyte abnormalities, dehydration and multiple liver masses with lymphadenopathy Patient given 2 L of IV hydration in the ER Started patient on gentle IV hydration with normal saline at 75 cc/hour Strict input and output monitoring Patient had mild lactic acidosis on admission which is slowly improving- monitor Monitor renal functions closely Wound care consult placed for treatment of his ulcers in the buttocks and left hip Patient has lab findings consistent with mild hypothyroidism hence started patient on levothyroxine 50 mcg oral daily Patient meets criteria for severe protein calorie malnutrition Advised patient to have a frequent, high-calorie, intake of healthy food in diet on a daily basis to gain a few pounds Nutritional consult in place. Pt is agreeable to Gtube-however waiting with that per family wishes Pain control Turn and repositioned q2h Fall risk Patient's long-term prognosis remains guarded Repeat labs in a.m. Electrolyte replacement as per protocol. Patient will be monitored very closely on the floor.
[2023-09-21] MEDS: ASCORBIC ACID 500 MG TABLET PO (08:40)
[2023-09-21] MEDS: ENOXAPARIN 40 MG/0.4 ML SYRINGE SUB-Q (08:40)
[2023-09-21 13:49] VITALS: BP 120/64; PULSE 118; RESP 16; TEMP 36.9; O2SAT 91
--- NOTE | 2023-09-21 14:01 | WPDGIPROGNO ---
Progress Note: A&P Assessment and Plan (1) Severe protein-calorie malnutrition: Code(s): E43 - Unspecified severe protein-calorie malnutrition Status: Acute Assessment and Plan: awaiting on prognosis and plan of care is discussed but open to idea of PEG placement they understood that probably is not going to change poor prognosis but at least he will be able to get more calories (2) Metastatic disease: Qualifiers: Area of secondary neoplastic involvement: unspecified site Qualified Code(s): C79.9 - Secondary malignant neoplasm of unspecified site Code(s): C79.9 - Secondary malignant neoplasm of unspecified site Status: Acute Assessment and Plan: by oncology biopsies pending (3) Adult failure to thrive: Code(s): R62.7 - Adult failure to thrive Status: Acute (4) Normocytic hypochromic anemia: Code(s): D50.9 - Iron deficiency anemia, unspecified Status: Acute (5) Liver masses: Code(s): R16.0 - Hepatomegaly, not elsewhere classified Status: Acute Subjective Date/time seen: 09/21/23 14:01 Interval history: no major changes, still poor intake because no appetite Review of Systems Review of Systems: All systems reviewed & are unremarkable except as noted in HPI and below Exam Const: Other: cachectic, chronically ill appearing HENMT: Face/Nose/Sinus: Normal nares present Eyes: General: appearance normal, both eyes and all related structures Neck: Other: lymph node of left supraclavicular site s/p bx Resp: Effort & Inspection: normal respiratory effort Cardio: Rate: regular rate GI: GI Palp: Yes Soft to palpation and No Tenderness to palpation present (GI) Auscultation: normal bowel sounds Skin: General skin exam: no erythema Neuro: Speech: normal speech Extrem: Other: decrease muscle Psych: Affect: No Hostile affect present Objective Data Vital Signs Vital Signs: Vital Signs - 24 hr 09/20/23 20:04 09/21/23 05:30 09/21/23 08:35 Temperature 97.6 F 97.3 F L Pulse Rate 83 94 Respiratory Rate 18 18 Blood Pressure 105/63 102/52 L Pulse Oximetry 97 95 Oxygen Delivery Room Air 09/21/23 13:49 Temperature 98.5 F Pulse Rate 118 H Respiratory Rate 16 Blood Pressure 120/64 Pulse Oximetry 91 Oxygen Delivery Intake/Output Intake/Output: Intake & Output 09/18/23 09/19/23 09/20/23 09/21/23 23:59 23:59 23:59 23:59 Intake Total 1999 1050 1300 225 Output Total 300 161 Balance 1999 1050 1000 64 Meds/Results Medications: Active Medications Generic Name Dose Route Start Last Admin Trade Name Freq PRN Reason Stop Dose Admin Acetaminophen 650 mg 09/19/23 03:53 09/20/23 05:14 Acetaminophen 325 Mg Tablet PO 650 mg Q4H PRN Administration Mild Pain (1-3) or Fever Al Hydrox/Mg Hydrox/Simethicone 30 ml 09/19/23 03:53 Mag Hydrox/Al Hydrox/Simeth 30 Ml Udc PO QID PRN Dyspepsia Ascorbic Acid 500 mg 09/19/23 09:55 09/21/23 08:40 Ascorbic Acid 500 Mg Tablet PO 500 mg DAILY AYSHA Administration Enoxaparin Sodium 40 mg 09/19/23 09:00 09/21/23 08:40 Enoxaparin 40 Mg/0.4 Ml Syringe SUB-Q 40 mg DAILY AYSHA Administration Lactated Ringer's 1,000 mls @ 100 mls/hr 09/21/23 13:25 Lr - Lactated Ringers Iv IV CONT .Q10H AYSHA Ketorolac Tromethamine 30 mg 09/20/23 15:13 09/21/23 00:55 Ketorolac 30 Mg/Ml Vial (*Bkc) IV PUSH 30 mg Q6H PRN Administration Pain Rated 4-6 Levothyroxine Sodium 50 mcg 09/19/23 06:30 09/21/23 06:03 Levothyroxine Sodium 50 Mcg Tablet PO 50 mcg DAILY@0630 AYSHA Administration Magnesium Hydroxide 30 ml 09/19/23 03:53 Magnesium Hydroxide Susp 30 Ml Udc PO DAILY PRN Constipation Miconazole Nitrate 1 applic 09/19/23 09:00 09/21/23 08:40 Miconazole 2% Antifungal Ointment 56 Gm TOPICAL 1 applic Q12HR AYSHA Administration Morphine Sulfate 2 mg
[2023-09-21] MEDS: LACTATED RINGERS 1,000 ML 100 ML IV CONT (15:07)
[2023-09-21 20:13] VITALS: BP 105/59; PULSE 110; RESP 17; TEMP 37; O2SAT 96
[2023-09-22] MEDS: LACTATED RINGERS 1,000 ML 100 ML IV CONT (01:40)
[2023-09-22 04:51] VITALS: BP 109/61; PULSE 116; RESP 17; TEMP 36.8; O2SAT 93
[2023-09-22 05:29] LABS: Basophils Absolute Auto 0.1 K/mm3 (0.0-0.1); Basophils Percent Auto 1.3 % (0.2-1.2); Eosinophils Percent Auto 0.2 % (0-4.4); Hematocrit 26.6 % (42.0-52.0); Immature Granulocyte Absolute 0.18 K/mm3 (0.00-0.031); Immature Granulocyte Percent A 3.9 % (0-0.5); Lymphocytes Absolute Auto 0.37 K/mm3 (0.9-3.2); Lymphocytes Percent Auto 7.9 % (18.3-44.2); Mean Corpuscular HGB Conc 30.1 g/dl (32-36); Mean Corpuscular Volume 89.9 fl (80-100); Monocytes Absolute Auto 0.2 K/mm3 (0.1-0.6); Monocytes Percent Auto 5.1 % (2.6-8.5); Neutrophils Absolute Auto 3.8 K/mm3 (1.3-6.7); Neutrophils Percent Auto 81.6 % (45.5-73.1); Platelet Count Result 184 k/mm3 (150-375); Red Blood Count 2.96 M/mm3 (4.6-6.20); Red Cell Distribution Width 21.9 % (11.5-14.5); White Blood Count 4.7 K/mm3 (4.5-10.0)
[2023-09-22] MEDS: KETOROLAC 30 MG/ML VIAL (*BKC) IV PUSH (05:43)
[2023-09-22 05:51] LABS: Anion Gap 17 mmol/L (4-12); Blood Urea Nitrogen 35 mg/dL (9-20); Carbon Dioxide 14 mmol/L (22-30); Chloride 106 mmol/L (98-107); Estimated CRCL calculation 32 ml/min; Estimated Glomerular Filt Rate 55; Glucose 82 mg/dL (65-110); Potassium 4.5 mmol/L (3.4-5.0); Sodium 137 mmol/L (137-145)
[2023-09-22 05:52] LABS: Anisocytosis 2+; Crenated RBC 1+; Platelet Estimate Adequate (Adequate)
[2023-09-22 05:53] LABS: Schistocytes Rare
[2023-09-22 06:14] LABS: Carcinoembryonic Antigen 3.3 ng/mL (0.0-3.0)
--- NOTE | 2023-09-22 07:33 | PM.IMPN ---
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 barium study ordered pt is agreeable for G-tube- GI consulted for placement-however when Dr Candelaria discussed with brother- family want to wait with that until diagnosis is made and plan of care is discussed (3) Metastatic disease: Qualifiers: Area of secondary neoplastic involvement: unspecified site Qualified Code(s): C79.9 - Secondary malignant neoplasm of unspecified site Code(s): C79.9 - Secondary malignant neoplasm of unspecified site Status: Acute Assessment and Plan: oncology consulted- following Patient underwent right supraclavicular lymph node biopsy 09/18 - pathology is pending. (4) Normocytic hypochromic anemia: Code(s): D50.9 - Iron deficiency anemia, unspecified Status: Acute Assessment and Plan: likely from malignancy- hem/onc on board (5) Adult failure to thrive: Code(s): R62.7 - Adult failure to thrive Status: Acute Assessment and Plan: -consulted GI for peg tube placement- family want to wait - pt is intake is very minimal at this point- but will continue to encourage and monitor to prevent aspiration - will add LR at 100 ml/h for now (6) Emphysema lung: Code(s): J43.9 - Emphysema, unspecified Status: Acute (7) Aortic atherosclerosis: Code(s): I70.0 - Atherosclerosis of aorta Status: Acute (8) Major depressive disorder, recurrent, mild: Code(s): F33.0 - Major depressive disorder, recurrent, mild Status: Acute (9) Benign prostatic hyperplasia with lower urinary tract symptoms: Code(s): N40.1 - Benign prostatic hyperplasia with lower urinary tract symptoms Status: Acute (10) Presence of aortocoronary bypass graft: Onset Date: 2018 Code(s): Z95.1 - Presence of aortocoronary bypass graft Status: Acute (11) Atherosclerotic heart disease of [place] coronary artery without angina pectoris: Code(s): I25.10 - Atherosclerotic heart disease of [place] coronary artery without angina pectoris Status: Acute (12) Age related osteoporosis: Code(s): M81.0 - Age-related osteoporosis without current pathological fracture Status: Acute (13) Essential (primary) hypertension: Code(s): I10 - Essential (primary) hypertension Status: Acute Plan Admit patient to medical unit under full inpatient status Patient admitted with thrive, dehydration, electrolyte abnormalities, dehydration and multiple liver masses with lymphadenopathy Patient given 2 L of IV hydration in the ER Started patient on gentle IV hydration with normal saline at 75 cc/hour Strict input and output monitoring Patient had mild lactic acidosis on admission which is slowly improving- monitor Monitor renal functions closely Wound care consult placed for treatment of his ulcers in the buttocks and left hip Patient has lab findings consistent with mild hypothyroidism hence started patient on levothyroxine 50 mcg oral daily Patient meets criteria for severe protein calorie malnutrition Advised patient to have a frequent, high-calorie, intake of healthy food in diet on a daily basis to gain a few pounds Nutritional consult in place. Pt is agreeable to Gtube-however waiting with that per family wishes Pain control Turn and repositioned q2h Fall risk Patient's long-term prognosis remains guarded MOnitor labs. Electrolyte replacement as per protocol. Patient will be monitored very closely on the floor. Ti
[2023-09-22] MEDS: ENOXAPARIN 40 MG/0.4 ML SYRINGE SUB-Q (08:20)
[2023-09-22] MEDS: ASCORBIC ACID 500 MG TABLET PO (08:20)
--- NOTE | 2023-09-22 13:18 | PCNFU ---
Nutrition Follow-Up Complete: Severe Protein Calorie Malnutrition as related to inadequate protein-energy intake with increased protein-energy needs in setting of chronic disease as evidenced by by minimal oral intake for > 1-2 months: significant weight loss of 21% (27 ibs) in 1 year; severe subcutaneous fat loss (orbital fat pads) and muscle wasting (temporalis). Meet estimated nutritional needs. - Not meeting goal with PO intake Goal: Pt current nutrition is Puree diet, mildly thickened liquids. Intakes 0-25%. Ensure Compact BID for additional 220 kcal and 9 g protein each. Nutrition recommendation: If tube feeding recommendations are needed: Jevity 1.5 continuous at goal rate 60 ml/h: 1980 kcal, 84 g protein, 1003 ml free water. Flush 150 ml free water q 4 hours. Total water 1903 ml/day. Last recorded weight is 46.5 kg. Bowel Motility: Last BM charted 01/18/24. May benefit from bowel regimen Labs Reviewed: Hgb 8.0, Hct 26.6, BUN 35 Meds Noted: Lactated ringers, Zofran, milk of magnesia Skin: Unstageable to buttock Additional Notes: Biopsy results pending. Pt is agreeable to PEG; family still awaiting plan of care to decide if proceeding with PEG. Eating very little. Monitoring closely Will monitor, weight, labs, skin, meds, oral intake every 3 days.
--- NOTE | 2023-09-22 13:57 | WPDGIPROGNO ---
Progress Note: A&P Assessment and Plan (1) Cardiac arrest: Code(s): I46.9 - Cardiac arrest, cause unspecified Status: Acute Assessment and Plan: found patient unresponsive and I called [facility] started CPR primary and ICU at bedside right now (2) Severe protein-calorie malnutrition: Code(s): E43 - Unspecified severe protein-calorie malnutrition Status: Acute (3) Liver masses: Code(s): R16.0 - Hepatomegaly, not elsewhere classified Status: Acute (4) Metastatic disease: Qualifiers: Area of secondary neoplastic involvement: unspecified site Qualified Code(s): C79.9 - Secondary malignant neoplasm of unspecified site Code(s): C79.9 - Secondary malignant neoplasm of unspecified site Status: Acute Subjective Date/time seen: 09/22/23 13:20 Interval history: I came to patient's room to talk to him and he was unresponsive, then I did not find heartbeat so I called [facility]. Exam Narrative: unresponsive, he is not breathing, no heart beat CPR started and [facility] called Objective Data Vital Signs Vital Signs: Vital Signs - 24 hr 09/21/23 20:13 09/21/23 20:00 09/22/23 04:51 Temperature 98.6 F 98.3 F Pulse Rate 110 H 116 H Respiratory Rate 17 17 Blood Pressure 105/59 L 109/61 Pulse Oximetry 96 93 Oxygen Delivery Room Air 09/22/23 08:20 Temperature Pulse Rate Respiratory Rate Blood Pressure Pulse Oximetry Oxygen Delivery Room Air Intake/Output Intake/Output: Intake & Output 09/19/23 09/20/23 09/21/23 09/22/23 23:59 23:59 23:59 23:59 Intake Total 1050 2858 439 9017 Output Total 300 161 Balance 1050 6376 875 1271 Meds/Results Medications: Active Medications Generic Name Dose Route Start Last Admin Trade Name Freq PRN Reason Stop Dose Admin Acetaminophen 650 mg 09/19/23 03:53 09/20/23 05:14 Acetaminophen 325 Mg Tablet PO 650 mg Q4H PRN Administration Mild Pain (1-3) or Fever Al Hydrox/Mg Hydrox/Simethicone 30 ml 09/19/23 03:53 Mag Hydrox/Al Hydrox/Simeth 30 Ml Udc PO QID PRN Dyspepsia Ascorbic Acid 500 mg 09/19/23 09:55 09/22/23 08:20 Ascorbic Acid 500 Mg Tablet PO 500 mg DAILY AYSHA Administration Enoxaparin Sodium 40 mg 09/19/23 09:00 09/22/23 08:20 Enoxaparin 40 Mg/0.4 Ml Syringe SUB-Q 40 mg DAILY AYSHA Administration Lactated Ringer's 1,000 mls @ 100 mls/hr 09/21/23 13:25 09/22/23 01:40 Lr - Lactated Ringers Iv IV CONT 100 mls/hr .Q10H AYSHA Administration Ketorolac Tromethamine 30 mg 09/20/23 15:13 09/22/23 05:43 Ketorolac 30 Mg/Ml Vial (*Bkc) IV PUSH 30 mg Q6H PRN Administration Pain Rated 4-6 Levothyroxine Sodium 50 mcg 09/19/23 06:30 09/22/23 05:46 Levothyroxine Sodium 50 Mcg Tablet PO Not Given DAILY@0630 AYSHA Magnesium Hydroxide 30 ml 09/19/23 03:53 Magnesium Hydroxide Susp 30 Ml Udc PO DAILY PRN Constipation Miconazole Nitrate 1 applic 09/19/23 09:00 09/22/23 08:21 Miconazole 2% Antifungal Ointment 56 Gm TOPICAL 1 applic Q12HR AYSHA Administration Morphine Sulfate 2 mg 09/20/23 14:42 09/20/23 15:00 Morphine Sulfate (*Crx) 2 Mg/Ml Inj IV PUSH 2 mg Q4H PRN Administration Pain Rated 7-10 Ondansetron HCl 4 mg 09/20/23 15:13 Ondansetron Inj 4 Mg/2 Ml Vial IV PUSH Q4-6H PRN Nausea And Vomiting Radiology Results: ITS Impressions Head CT 09/18/23 14:55 IMPRESSION: 1. 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 2. Extensive nonspecific cerebral white matter disease, which likely represents chronic small vessel ischemic disease. Chest/Abdomen/Pelvis CT 09/18/23 14:59 IMPRESSION: 1. Liver masses and mediastinal and right supraclavicular lymphadenopathy, consistent with metastatic disease. Sclerosis in T9 that is indeterminate for metastatic disease. 2. Small pleural effusions. 3. Age-indeterminate L1 burst fracture suspicious for pathologic f
--- NOTE | 2023-09-22 14:03 | PM.DDS ---
Discharge Summary Date and Time Date of : 09/22/23 Time of : 13:55 Probable Cause of Probable Cause of : Sudden cardiac arrest due to malignancy- possible metastasis Summary Hospital Course: 68 years old pleasantly confused gentleman brought in to the ER for generalized weakness and failure to thrive he was unable to get off the floor for multiple days and was unable to get off the couch for 3 weeks. He reports significant weight loss as he has been unable to eat or drink for multiple weeks. He weighs 59 kg in 09/2022 and weighted 46.5 kg today. He is also complaining of pain in his buttock and left hip which showed ulcers. He was found to be dehydrated and started on IV fluids. He says he has not had any healthcare for approximately 1 year and not taking any medications. Workup was done in the ER which showed Liver masses and mediastinal and right supraclavicular lymphadenopathy consistent with probable metastatic disease. ER physician spoke with interventional Radiology who agreed to perform ultrasound guided lymph node biopsy in the morning. He is being admitted for IV hydration, ultrasound-guided lymph node biopsy, oncology evaluation in the next few days, medical management and and further workup. 09/18- pt is seen and examined. He reports that he is hungry and wants to eat. Will do bedside nursing swallow eval and speech therapy. Dietitian saw him- appreciate recommendation. Pt is comfortable, reports some pain- but tolerable. 09/19 was seen per oncology 09/18- Dr Bhupendra Riddle- I have provided him my office information for follow-up on the pathology and to discuss management. Weight loss and anorexia. Barium study has been ordered. Based on the results we will decide about and G-tube placement for nutrition Anemia profile is ordered per oncology. Noted Ferritin level >2000. Discussed plan of care with pt. Pt is aware of his situation and wants to proceed with treatment. Discussed the need for an adequate nutritional support since pt is not eating at all. Pt is agreeable to proceed with G-tube placement- will consult GI or surgery. Pt has morphine for sever pain, tylenol and will order Toradol prn for 4-6 pain. Zofran if needed for nausea. Turn and reposition q2h. Once gTUBE IN PLACE- will utilize advertising statistical clerk recommendation for tube feedings. Meanwhile encouraged oral intake. 09/20- GI consulted yesterday. Per note- pt's family was at the bedside- brother and decided to wait with Pegtube placement after diagnoses, prognosis and discussion of plan of care with Hem/Onc. Oral intake is definitely not enough and pt even with help has a hard time eating and swallowing on his own. However, will respect family wishes and wait till discussion takes place with oncology on Friday. Pt is alert and oriented- able to make his own decisions. Discussed it with him this am- and he is ok with waiting. Attempted to help pt eat- he was able to take only few bites of food and had a sip of water. 09/21- plan of care discussion today with hem/onc if biopsy results are back. and GI tube placement. No appetite. Pt is able to take few bites with help and encouragement. For now- continue help with eating, IV fluids. turn/reposition, IS. Additional Data Family: contacted Was code activated?: Yes
--- NOTE | 2023-09-22 14:06 | P.PNCROSS_ITS ---
Event Note Event Note Event Note: Danna beard was called this afternoon when Dr Abdul saw pt- pt was unresponsive and had no pulse. Tried to call sister- [phone]-no answer. Called brother- Owen at [phone]. Updated with what was going on. Brother Owen stated that pt did not have POA but always include him and sister into medical decision making and voiced to them that he would not want anything excessive in the event of his heart stopping- meaning attempts should be made to resuscitate but if unsu ccessful- efforts should be stopped. During the code at the bedside- multiple attempts were made to revive pt but all unsuccessful so far as pt did not achieve ROSC. Code was stopped -brother was aware and agreeable with plan. Owen will notified sister and will be coming here soon.
[2023-09-26 17:58] LABS: Vitamin B2 42.2 nmol/L (6.2-39.0)
== END 2023-09-22 13:55 | disposition expired | DRG 823 ==
LOC: ANHED 17:27 → ANH2MED 18:12
PROVIDERS: Family Medicine; Internal Medicine Hematology & Oncology; Admitting Provider Internal Medicine; Emergency Provider Physician Assistant; PCP Family Medicine Adolescent Medicine; Visit Provider Nurse Practitioner
DX: C77.0 Secondary and unspecified malignant neoplasm of lymph nodes of head, face and neck (principal); E43 Unspecified severe protein-calorie malnutrition; F33.0 Major depressive disorder, recurrent, mild; Z68.1 Body mass index [BMI] 19.9 or less, adult; C80.1 Malignant (primary) neoplasm, unspecified; E86.0 Dehydration; J43.9 Emphysema, unspecified; I46.9 Cardiac arrest, cause unspecified; I70.0 Atherosclerosis of aorta; I10 Essential (primary) hypertension; I25.10 Atherosclerotic heart disease of native coronary artery without angina pectoris; D50.9 Iron deficiency anemia, unspecified; D63.0 Anemia in neoplastic disease; R16.0 Hepatomegaly, not elsewhere classified; L89.302 Pressure ulcer of unspecified buttock, stage 2; L89.222 Pressure ulcer of left hip, stage 2; N40.0 Benign prostatic hyperplasia without lower urinary tract symptoms; M81.0 Age-related osteoporosis without current pathological fracture; Z96.642 Presence of left artificial hip joint; Z87.891 Personal history of nicotine dependence; Z95.1 Presence of aortocoronary bypass graft
CPT/HCPCS: 36415; 38505; 70450; 71260; 72125; 74177; 76942; 80048; 80053; 80307; 81001; 82378; 82550; 82728; 83540; 83550; 83605; 83690; 83735; 84100; 84252; 84439; 84443; 84480; 84484; 85025; 85610; 85730; 88305; 88342; 92610; 92611; 92950; 93005; 96361; 96374; 97110; 97161; 97165; 97530; 99285; A9270; G0378; J0153; J0171; J1650; J1885; J2270; J7030; J7120; Q9967